=== PATIENT | female | born 1980 | race Caucasian/White ===

== ENCOUNTER → 2020-04-19 | Outpatient (CLI) | payer MEDICARE, MEDICAID | LOC: RAD 11:51 | DX: M54.2 Cervicalgia (principal); M54.6 Pain in thoracic spine ==

== ENCOUNTER → 2020-05-03 | Outpatient (CLI) | payer MEDICARE, MEDICAID | LOC: CARDREHAB 14:37 | DX: G47.10 Hypersomnia, unspecified (principal); R53.83 Other fatigue | CPT/HCPCS: G0399 ==

== ENCOUNTER → 2021-05-05 | Outpatient (CLI) | payer MEDICARE, MEDICAID ==
[2021-05-05 16:12] LABS: EOS # 0.72 (0.04-0.40); EOS % 5.5 % (1.0-5.0); HEMATOCRIT 40.3 % (37.0-47.0); HEMOGLOBIN 12.7 g/dL (12.5-16.0); LYMPH# 3.19 (1.50-4.00); MEAN CELL VOLUME 100 fl (78-100); MEAN CORPUSCULAR HEMOGLOBIN 32 pg (27-31); MEAN CORPUSCULAR HGB CONC 32 g/dL (33-37); MEAN PLATELET VOLUME 9.6 fl (7.4-10.4); NEU # 8.17 (1.40-6.50); PLATELET COUNT 280 K/mm3 (130-400); RED BLOOD COUNT 4.02 M/mm3 (4.10-5.30); RED CELL DISTRIBUTION WIDTH 13.1 % (11.5-14.5)
[2021-05-05 16:36] LABS: ALBUMIN 4.1 g/dL (3.5-5.0)
[2021-05-05 16:38] LABS: TOTAL PROTEIN 7.9 g/dL (6.4-8.3)
[2021-05-05 16:40] LABS: TOTAL BILIRUBIN 0.5 mg/dL (0.2-1.2)
== END ==
LOC: LAB 15:50
PROVIDERS: Internal Medicine
DX: E78.2 Mixed hyperlipidemia (principal); E11.9 Type 2 diabetes mellitus without complications; Z86.79 Personal history of other diseases of the circulatory system

== ENCOUNTER → 2021-05-14 | Outpatient (CLI) | payer MEDICARE, MEDICAID | LOC: RAD 05-09 10:00 | DX: K80.20 Calculus of gallbladder without cholecystitis without obstruction (principal); N26.1 Atrophy of kidney (terminal); R94.5 Abnormal results of liver function studies ==

== ENCOUNTER → 2022-01-23 | Outpatient (CLI) | payer MEDICARE, MEDICAID | LOC: RAD 11:49 | DX: I70.209 Unspecified atherosclerosis of native arteries of extremities, unspecified extremity (principal) ==

== ENCOUNTER → 2023-09-14 | Outpatient (CLI) | payer MEDICARE, MEDICAID | LOC: LAB 13:16 | DX: E78.2 Mixed hyperlipidemia (principal); E11.9 Type 2 diabetes mellitus without complications; Z86.79 Personal history of other diseases of the circulatory system ==